=== PATIENT | male | born 1970 | race Two or more races ===

== ENCOUNTER 2022-02-03 08:00 | Outpatient (CLI) | payer OTHER ==
--- NOTE | 2022-02-03 17:26 | XRAY Report ---
PROCEDURE: Foot 3 View RT INDICATIONS: RIGHT FOOT PAIN TECHNIQUE: 3 views of the foot were acquired. COMPARISON: None. FINDINGS: No fracture or dislocation. On the lateral view there is prominent dorsal soft tissue swelling at the level of the forefoot. No radiopaque foreign body. IMPRESSION: No acute fracture. Prominent dorsal soft tissue swelling in the forefoot. Reviewed by: Kurt Boles MD on 02/03/2022 5:25 PM PDT Approved by: Kurt Boles MD on 02/03/2022 5:25 PM PDT Station ID: [id number]
== END 2022-02-03 23:59 | disposition home or self-care (01) ==
LOC: DI.S 08:00
PROVIDERS: ATTEND Physician Assistant Medical
DX: M79.89 Other specified soft tissue disorders (principal)

== ENCOUNTER 2023-01-17 21:38 | Outpatient (CLI) | payer BC, MEDICAID, OTHER ==
--- NOTE | 2023-01-18 09:52 | Ultrasound Report ---
PROCEDURE: Pelvic Limited or F/U INDICATIONS: RIGHT GROIN PAIN TECHNIQUE: Real-time transabdominal scanning was performed of the pelvic organs, with image documentation. COMPARISON: None. Findings and impression: In the right groin at the area of clinical concern, no hernia or masses identified. No fluid collecti on. Reviewed by: Parish Gomes MD on 01/18/2023 9:50 AM PDT Approved by: Parish Gomes MD on 01/18/2023 9:50 AM PDT Station ID: [id number]
--- NOTE | 2023-01-18 11:13 | Ultrasound Report ---
PROCEDURE: Testicle INDICATIONS: RIGHT TESTICULAR PAIN TECHNIQUE: Real-time scanning was performed of the scrotum and testicles, with image documentation. Color and p ulse Doppler interrogation was performed of both testicles. COMPARISON: None. FINDINGS: Right: Testicle is normal in size at 4.2 x 2.8 x 3.4 cm, and homogenous in echotexture. Epididymis is normal in overall size and morphology. Moderate hydrocele. No varicocele. Overlying scrotal skin is normal in thickness. Left: Testicle is normal in size at 4.1 x 2.6 x 3.2 cm, and homogeneous in echotexture. Epididymis is normal in overall size and morphology. Moderate hydrocele without varicocele. Overlying scrotal s kin is normal in thickness. Doppler: Color and pulse Doppler demonstrate normal and symmetric arterial flow in both testicles. IMPRESSION: Moderate bilateral hydroceles. Normal testicular ultrasound otherwise. Reviewed by: Corky Vigil on 01/18/2023 11:11 AM PDT Approved by: Corky Vigil on 01/18/2023 11:11 AM PDT Station ID: [id number]
== END 2023-01-17 21:39 | disposition home or self-care (01) ==
LOC: DI 21:38
PROVIDERS: ATTEND Registered Nurse
DX: R10.31 Right lower quadrant pain (principal); N50.811 Right testicular pain; N43.3 Hydrocele, unspecified